=== PATIENT | male | born 1965 | race Caucasian/White ===

== ENCOUNTER 2019-09-05 19:59 | Emergency (ER) | payer MEDICARE ==
[2019-09-05 20:06] VITALS: TEMP 97.6
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
--- NOTE | 2019-09-05 20:57 | XR ---
EXAMINATION TYPE: XR Hip LT and AP Pelvis DATE OF EXAM: 09/05/2019 COMPARISON: NONE HISTORY: Pain. Left hip pain TECHNIQUE: A single AP view of the pelvis is obtained. Two views of the left hip are obtained. FINDINGS: Pelvic ring is intact. There is a left hip nailing. The sacroiliac joints are intact. I see no acute fracture nor dislocation. IMPRESSION: No acute abnormality of the pelvis and left hip. Review surgery..
--- NOTE | 2019-09-05 20:57 | XR ---
EXAMINATION TYPE: XR femur LT DATE OF EXAM: 09/05/2019 COMPARISON: NONE HISTORY: Pain TECHNIQUE: 4 views FINDINGS: There is a left hip nailing fixing an old intertrochanteric fracture left femur. The knee j oint is intact. I see no acute fracture nor dislocation. Hip joint is intact. IMPRESSION: No acute abnormality of the left femur.
[2019-09-05 21:28] VITALS: BP 119/78; PULSE 55; RESP 18
== END 2019-09-05 21:28 | disposition home or self-care (01) ==
LOC: EC 19:59
DX: S73.102A Unspecified sprain of left hip, initial encounter (principal); Z91.011 Allergy to milk products; Z87.81 Personal history of (healed) traumatic fracture; Z87.828 Personal history of other (healed) physical injury and trauma; Z96.698 Presence of other orthopedic joint implants; Z98.890 Other specified postprocedural states; W18.49XA Other slipping, tripping and stumbling without falling, initial encounter
CPT/HCPCS: 73502; 99284

== ENCOUNTER 2020-07-11 08:53 | Day surgery (SDC) | payer MEDICARE ==
[2020-07-09 11:34] VITALS: BMI 26.6
[~2020-07-11 08:53] MED LIST: LACTATED RINGERS 1,000 ML IV SCH; LIDOCAINE 1% (10MG/ML) FOR IV START INTRADERMA PRN
[2020-07-11 09:09] VITALS: TEMP 96.9
[2020-07-11] MEDS ORDERED: PROPOFOL 10 MG/ML 20 ML VIAL IV ONE (09:16)
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
--- NOTE | 2020-07-11 09:36 | P.OP ---
Date of Procedure: 07/11/20 Preoperative Diagnosis: Screening colonoscopy Postoperative Diagnosis: External hemorrhoids Procedure(s) Performed: Colonoscopy Anesthesia: MAC Surgeon: Gino Ordaz Pathology: none sent Condition: stable Disposition: PACU Description of Procedure: The patient's placed on the endoscopy table in the lateral position. He received IV sedation. Digital rectal exam is performed which revealed external hemorrhoids. The possible colonoscope was then placed patient anus passed throughout the entire colon. The ileocecal valve was visualized. The cecum, ascending and transverse colon appeared normal. The descending and sigmoid colon appeared normal. Scope summer back the rectum this appeared normal. Scope was withdrawn from the anus and there were external hemorrhoids noted.
[2020-07-11 09:50] VITALS: BP 119/72; PULSE 47; RESP 16
== END 2020-07-11 10:03 | disposition home or self-care (01) ==
LOC: ORWHC2ENDO 08:53
PROVIDERS: ATTEND Surgery
DX: Z12.11 Encounter for screening for malignant neoplasm of colon (principal); K64.4 Residual hemorrhoidal skin tags; Z91.011 Allergy to milk products; Z98.890 Other specified postprocedural states; Z82.49 Family history of ischemic heart disease and other diseases of the circulatory system; Z79.890 Hormone replacement therapy
CPT/HCPCS: J2704; G0121

== ENCOUNTER 2020-08-06 05:50 | Day surgery (SDC) | payer MEDICARE ==
[2020-08-05 08:45] VITALS: BMI 27.1
[~2020-08-06 05:50] MED LIST changes: +ACETAMINOPHEN TAB 500 MG TAB PO ONE; +DEXAMETHASONE SOD PHOSPHATE 4 MG/ML 1 ML VIAL IV ONE; +HYDROmorphone 0.5 MG/0.5 ML SYRINGE IVP PRN; -LIDOCAINE 1% (10MG/ML) FOR IV START INTRADERMA PRN; +MIDAZOLAM 2 MG/2 ML VIAL IV PRN; +NA PHOS,M-B/NA PHOS,DI-BA 133 ML ENEMA RECTAL ONE; +ONDANSETRON 4 MG/2 ML VIAL IVP ONE; +Pre Op ABX Message 1 EACH MISC MISCELLANE ONE; +SCOPOLAMINE 1.5MG/72HR PATCH TRANSDERM ONE
[2020-08-06] MEDS ORDERED: HEPARIN SODIUM,PORCINE 5,000 UNIT/ML 1 ML VIAL SQ ONE (06:00)
[2020-08-06 06:13] VITALS: TEMP 97.8
[2020-08-06] MEDS ORDERED: LACTATED RINGERS 1,000 ML IV ONE (06:16)
[2020-08-06] MEDS ORDERED: KETAMINE 10 MG/ML 20 ML VIAL ONE (08:07)
[2020-08-06] MEDS ORDERED: LIDOCAINE 1% INJ 10MG/ML (20 ML MDV) ONE (08:07)
[2020-08-06] MEDS ORDERED: fentaNYL (PF) 50 MCG/ML 2 ML AMP ONE (08:07)
[2020-08-06] MEDS ORDERED: MIDAZOLAM 2 MG/2 ML VIAL ONE (08:07)
[2020-08-06] MEDS ORDERED: PROPOFOL 10 MG/ML 20 ML VIAL IV ONE (08:07)
[2020-08-06] MEDS ORDERED: SODIUM CHLORIDE 0.9% 50 ML with ceFAZolin 2,000 MG IV ONE ×2 (08:20)
[2020-08-06] MEDS ORDERED: LIDOCAINE 1%-EPI 1:100,000 20 ML VIAL SQ ONE (08:27)
[2020-08-06] MEDS ORDERED: BUPIVACAINE (PF) 0.5% 30 ML VIAL SQ ONE (08:27)
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
--- NOTE | 2020-08-06 08:55 | P.OP ---
Date of Procedure: 08/06/20 Preoperative Diagnosis: Internal and a external hemorrhoids Postoperative Diagnosis: Internal and external hemorrhoids Procedure(s) Performed: Internal and external hemorrhoidectomy Anesthesia: MAC, regional Surgeon: Gino Ordaz Estimated Blood Loss (ml): 10 Pathology: other (Internal and external hemorrhoids) Condition: stable Disposition: PACU Description of Procedure: The patient's placed on the operative table in the prone position. He received IV sedation. His hemorrhoids were prepped and draped usual sterile fashion. Hemorrhoids were anesthetized 1% local Xylocaine. Patient had a large left lateral hemorrhoidal column and a large right posterior hemorrhoidal column. The anal retractors placed and anus. The left lateral hemorrhoidal column was then grasped with a pair of Allis clamps and the hemorrhoidectomy was performed using the Harmonic scissors. The mucosal edges were reapproximated using 3-0 Vicryl. The right posterior hemorrhoidal column was excised in identical fashion. There was no bleeding seen. The anus was packed with Gelfoam. Patien t top procedure well was sent to recovery room stable condition.
[2020-08-06 09:04] VITALS: RESP 16
[2020-08-06 09:17] VITALS: BP 131/78; PULSE 51
== END 2020-08-06 09:45 | disposition home or self-care (01) ==
LOC: OR 05:50
PROVIDERS: ATTEND Surgery
DX: K64.8 Other hemorrhoids (principal); K64.4 Residual hemorrhoidal skin tags; K64.5 Perianal venous thrombosis; M19.90 Unspecified osteoarthritis, unspecified site; Z98.890 Other specified postprocedural states; Z82.49 Family history of ischemic heart disease and other diseases of the circulatory system; Z91.011 Allergy to milk products; Z79.890 Hormone replacement therapy
CPT/HCPCS: 88304; 46260; J2250; J1644; J1100; J2405; J0690; J2001; J3010; J2704